=== PATIENT | female | born 1935 | race Caucasian/White ===

== ENCOUNTER 2016-09-27 21:37 | Emergency (ER) | payer OTHER, MEDICARE ==
[~2016-09-27] VITALS: Ht 154.9 cm; Wt 85.3 kg
[2016-09-27 21:53] VITALS: BP 139/82
[2016-09-27] MEDS ORDERED: VAS5 PO (22:09)
[2016-09-27] MEDS ORDERED: METO25TA PO (22:09)
[2016-09-27] MEDS ORDERED: ASPI81CT89 PO (22:09)
[2016-09-27] MEDS ORDERED: ATOR20TA PO (22:09)
[2016-09-27 23:03] VITALS: BP 139/82
== END 2016-09-27 23:03 | disposition home or self-care (01) ==
LOC: MED 21:37
DX: S52.022A Displaced fracture of olecranon process without intraarticular extension of left ulna, initial encounter for closed fracture (principal); J44.9 Chronic obstructive pulmonary disease, unspecified; I10 Essential (primary) hypertension; E78.00 Pure hypercholesterolemia, unspecified; Z79.82 Long term (current) use of aspirin; Z79.899 Other long term (current) drug therapy; Z88.8 Allergy status to other drugs, medicaments and biological substances
CPT/HCPCS: 29105; 73080; 99284; Q0092

== ENCOUNTER 2016-10-30 12:05 | Outpatient (CLI) | payer OTHER, MEDICARE ==
[~2016-10-30 12:05] MED LIST: ASPI81CT89 PO; ATOR20TA PO; METO25TA PO; VAS5 PO
[2016-10-30 12:28] LABS: HEMATOCRIT 45.6 % (36-48); HEMOGLOBIN 14.9 g/dL (12.0-16.0); MEAN CORPUSCULAR HEMOGLOBIN 30 pg (27-31); MEAN CORPUSCULAR HGB CONC 33 g/dL (33-37); MEAN CORPUSCULAR VOLUME 91 fL (80-94); PLATELET COUNT (AUTO) 425 K/uL (140-450); RED BLOOD CELL COUNT(AUTO) 4.99 MIL/uL (4.20-5.40); RED CELL DISTRIBUTION WIDTH 13.1 % (11.6-13.7); WHITE BLOOD COUNT (AUTO) 7.8 K/uL (4.8-10.8)
[2016-10-30 12:40] LABS: EOSINOPHILS % (MANUAL) 3 % (0-4); LYMPHOCYTES % (MANUAL) 34 % (20-46); MONOCYTES % (MANUAL) 10 % (5-12)
[2016-10-30 13:01] LABS: ASPARTATE AMINOTRANSFERASE 17 U/L (15-37); CARBON DIOXIDE 28.6 mmol/L (21-32); CHLORIDE 107 mmol/L (98-107); GLUCOSE 107 mg/dL (74-106); POTASSIUM 4.6 mmol/L (3.5-5.1); SODIUM SERUM 140 mmol/L (136-145); TOTAL BILIRUBIN 0.5 mg/dL (0.0-1.0)
[2016-10-30 13:17] LABS: ALBUMIN 3.5 g/dL (3.4-5.0); CREATININE 1.1 mg/dL (0.6-1.3); FREE T4 (FREE THYROXINE) 0.86 ng/dL (0.76-1.46); UREA NITROGEN, BLOOD 22 mg/dL (7-18)
== END 2016-10-30 20:39 | disposition home or self-care (01) ==
LOC: MLB 12:05
PROVIDERS: ATTEND Internal Medicine Pulmonary Disease
DX: E78.00 Pure hypercholesterolemia, unspecified (principal); M99.82 Other biomechanical lesions of thoracic region; I10 Essential (primary) hypertension; Z79.899 Other long term (current) drug therapy
CPT/HCPCS: 36415; 80053; 83036; 84439; 85025

== ENCOUNTER 2017-01-29 11:49 | Outpatient (CLI) | payer OTHER, MEDICARE | END 2017-01-29 18:15 | disposition home or self-care (01) | LOC: MLB 11:49 | PROVIDERS: ATTEND Internal Medicine Pulmonary Disease | DX: M99.82 Other biomechanical lesions of thoracic region (principal); M54.9 Dorsalgia, unspecified | CPT/HCPCS: 36415; 83036 ==

== ENCOUNTER 2018-03-04 12:00 | Outpatient (CLI) | payer OTHER, MEDICARE ==
[2018-03-04 12:30] LABS: APPEARANCE,URINE CLEAR (CLEAR); BILIRUBIN,URINE NEGATIVE (NEGATIVE); BLOOD, URINE TRACE-I (NEGATIVE); COLOR,URINE YELLOW (YELLOW); LEUKOCYTE ESTERASE ,URINE TRACE (NEGATIVE); NITRITE, URINE NEGATIVE (NEGATIVE); PH,URINE 5.5 (5.0-9.0); UGLUCOSE NEGATIVE (NEGATIVE)
[2018-03-04 12:36] LABS: RBC,URINE 0-5 (RARE) /HPF (0-5); WBC,URINE 0-5 (RARE) /HPF (0-5)
== END 2018-03-04 21:31 | disposition home or self-care (01) ==
LOC: MLB 12:00
PROVIDERS: ATTEND Internal Medicine Pulmonary Disease
DX: E78.00 Pure hypercholesterolemia, unspecified (principal); M54.9 Dorsalgia, unspecified; F41.9 Anxiety disorder, unspecified; I10 Essential (primary) hypertension; J44.9 Chronic obstructive pulmonary disease, unspecified
CPT/HCPCS: 81001